=== PATIENT | male | born 1950 | race Caucasian/White ===

== ENCOUNTER 2022-07-23 06:00 | Day surgery (SDC) | payer OTHER ==
[~2022-07-23] VITALS: Ht 170.2 cm; Wt 99.8 kg
[2022-07-23] MEDS ORDERED: CEFAZOLIN 2 GM IVPB PREMIX 50 ML IV ONE (07:00)
[2022-07-23] MEDS ORDERED: PROPOFOL 200MG/ 20ML VIAL (DIPRIVAN) IV ONE (09:30)
[2022-07-23] MEDS ORDERED: LIDOCAINE/EPI 1% 1:100000 20 ML VIAL INJ ONE (09:30)
[2022-07-23] MEDS ORDERED: NS IRRIG SOLN 1000 ML IR ONE (09:30)
[2022-07-23] MEDS ORDERED: SEVOFLURANE 15 MIN GAS INH ONE (09:30)
[2022-07-23] MEDS ORDERED: ONDANSETRON HCL 4 MG/2 ML VIAL IVP ONE (09:30)
[2022-07-23] MEDS ORDERED: LR 1,000 ML IV.SOLN IV ONE (09:30)
[2022-07-23] MEDS ORDERED: IBUPROFEN 600 MG TABLET PO ONE (10:30)
[2022-07-23] MEDS ORDERED: METOCLOPRAMIDE HCL 10 MG/2 ML VIAL IVP PRN (10:30)
[2022-07-23] MEDS ORDERED: ONDANSETRON HCL 4 MG/2 ML VIAL IVP PRN ×2 (10:30→13:30)
[2022-07-23] MEDS ORDERED: HYDROmorphone 1 MG/ML INJ. CARTRIDGE IVP PRN (10:30)
[2022-07-23] MEDS ORDERED: KETOROLAC TROMETHAMINE 30 MG VIAL IVP PRN (10:30)
[2022-07-23] MEDS ORDERED: NALOXONE HCL 0.4 MG/ML AMP (NARCAN) IVP PRN (11:30)
[2022-07-23] MEDS ORDERED: ACETAMINOPHEN/CODEINE 300 MG-30 MG TABLET PO PRN (13:30)
[2022-07-23] MEDS ORDERED: ONDANSETRON 4 MG ODT TAB PO PRN (13:30)
[2022-07-23 13:44] VITALS: BP_SYST 138
== END 2022-07-23 13:30 | disposition home or self-care (01) ==
LOC: SMU 06:00 → SDS 06:00
PROVIDERS: ATTEND Otolaryngology
DX: R22.1 Localized swelling, mass and lump, neck (principal); D17.0 Benign lipomatous neoplasm of skin and subcutaneous tissue of head, face and neck; E11.9 Type 2 diabetes mellitus without complications; E78.5 Hyperlipidemia, unspecified; I45.10 Unspecified right bundle-branch block; F17.290 Nicotine dependence, other tobacco product, uncomplicated; Z79.84 Long term (current) use of oral hypoglycemic drugs; Z79.899 Other long term (current) drug therapy; Z20.822 Contact with and (suspected) exposure to COVID-19
CPT/HCPCS: 36415; 87426; 21556; 13132; 82962; 88304; J0690; J2405; J2704; J7120; C1782; 88305